=== PATIENT | male | born 1970 | race Caucasian/White ===

== ENCOUNTER 2022-09-07 07:56 | Observation (INO) ==
--- NOTE | 2022-09-07 08:10 | DR.CP ---
HPI Time Seen Time Seen by Provider: 09/07/22 08:09 HPI Comment HPI Comment: PATIENT IS 51YR OLD MALE IN ER WITH LEFT SIDED CHEST PAIN RADIATING TO LEFT ARM SINCE 05:30AM TODAY. PATIENT SAID HE WAS DIAPHORETIC WHEN PAIN STARTED AND HE IS NAUSEATED. VOMITED TIMES 2 AND IS SOB. DENIES FEVER. HAD SIMILAR EPISODE 10/28/2020. Complaint Chief Complaint Doctor Comments: CHEST PAIN LEFT CHEST RADIATING TO LEFT ARM SINCE 05:30 AM TODAY. Reviewed Nurses Notes Review: Yes PMH PMH Past Medical History: Hypertension Past Surgical History: Yes Surgical History: Abdominal Surgery, Appendectomy, Cholecystectomy and Ortho Surgery Family History Family Medical History: Coronary Artery Disease and Hypertension Social History Do you use any recreational Drugs:: No ROS Review of Systems Constitutional: No Symptoms Reported; negative Fever Eyes: No Symptoms Reported ENTM: No Symptoms Reported; negative Nose Discharge or Nose Congestion Respiratoy: Short of Breath; negative Non-Productive Cough, Moist Cough or Wheezing Cardiovascular: Chest Pain; negative Edema or Palpitations Gastrointestinal/Abdominal: Abdominal Pain, Nausea and Vomiting; negative Diarrhea Genitourinary: No Symptoms Reported; negative Dysuria, Frequency or Hematuria Neurological: No Symptoms Reported; negative Headache or Dizziness Musculoskeletal: No Symptoms Reported; negative Muscle Pain Integumentary: No Symptoms Reported; negative Rash or Juandice Hematologic/Lymphatic: No Symptoms Reported; negative Easy Bleeding or Easy Bruising Endocrine: No Symptoms Reported; negative Increased Thirst or Increased Urine Psychiatric: No Symptoms Reported All Other Systems: Reviewed and Negative PE Vitals Vitals: Temperature 97.5 F Pulse Rate [Right] 66 Pulse Rate 60 Respiratory Rate 15 Blood Pressure [Left Arm] 127/67 Blood Pressure 155/92 O2 Sat by Pulse Oximetry 100 General Limitations: No Limitations General Appearance: Alert and In No Apparent Distress Head Head Exam: Normal Inspection Eyes Eye exam: Normal Appearance ENT ENT Exam: Normal Exam, Normal Oropharynx, Normal External Ear Exam and TM's Normal Bilaterally Chest Chest Inspection: Normal Inspection and Symmetric Chest Wall Rise; negative Tenderness Respiratory Respiratory Exam: Normal Lung Sounds Bilat; negative Accessory Muscle Use, Chest Wall Tenderness or Respiratory Distress Respiratory Exam: Bilateral: Clear to Auscultation Cardiovascular Cardiovascular Exam: Regular Rate, Normal Rhythm and Normal Heart Sounds; negative Systolic Murmur or Diastolic Murmur Pulse: Normal Edema: Normal Abdominal Exam Abdominal Exam: Normal Bowel Sounds, Soft and Tenderness (EPIGASTRIC TENDERNESS.) Abdominal Tenderness: RUQ, LUQ and Epigastrium Extremities Extremities Exam: Normal Inspection and Normal Capillary Refill Back Back Exam: Normal Inspection; negative (R) CVA Tenderness or (L) CVA Tenderness Neurologic Neurological Exam: Alert and Oriented X3; negative Motor Sensory Deficit Psychiatric Psychiatric Exam: Normal Affect and Normal Mood Skin Skin Exam: Intact MDM Additional Information Additional Information Obtained From: Old Records Differential Diagnosis Differential Diagnosis: Angina, CHF, Myocardial Infarction, Pericarditis, Pancreatitis, Pneumonia, Pneumothorax and Pulmonary Embolus COURSE Treatment Treatment: SEE ORDERS DONE WHILE PATIENT WAS IN ER. PATIENTS EKG, LABS AND CT REPORT DISCUSSED WITH HIM. MEDICATED FOR PAIN IN ER WITH NAUSEA MED WELL. AMYLASE AND LIPASE ELEVATED. PLACE ON IV FLUIDS AND WILL VITALIY NPO AND ADMIT HIM IN HOSPITAL FOR STOMACK REST AND IV FLUIDS. Consultation Consultation Comments: DISCUSSED PATIENT WITH DR. PARKS. HE WILL ADMIT PATIENT. Education/Counseling Education/Counseling: Patient Educated On: Diagnosis ROR Labs Reviewed Laboratory Results Reviewed?: Yes Result Diagrams: 09/08/22 05:36 09/08/22 05:36 Laboratory: WBC 6.0 X10^3/uL (3.6-10.0) 09/07/22 08:14 RBC 5.63 X10^6/uL (4.7-6.0) 09/07/22 08:14 Hgb 15.8 g/dL (13.5-18.0) 09/07/22 08:14 Hct 45.4 % (42.0-54.0) 09/07/22 08:14 MCV 80.7 fL (80.0-100.0) 09/07/22 08:14 MCH 28.1 pg (27.0-34.0) 09/07/22 08:14 MCHC 34.9 g/dL (33.0-35.0) 09/07/22 08:14 RDW 13.6 % (11.6-16.5) 09/07/22 08:14 Plt Count 164 X10^3/uL (150.0-450.0) 09/07/22 08:14 MPV 8.9 fL (7.4-11.0) 09/07/22 08:14 Neut % (Auto) 53.8 % (42.0-75.0) 09/07/22 08:14 Lymph % (Auto) 36.0 % (21.0-51.0) 09/07/22 08:14 [place] % (Auto) 8.0 % (0.0-13.0) 09/07/22 08:14 Eos % (Auto) 1.2 % (0.9-2.9) 09/07/22 08:14 Baso % (Auto) 1.0 % (0.2-1.0) 09/07/22 08:14 Neut # (Auto) 3.2 x10^3/uL (2.2-4.8) 09/07/22 08:14 Lymph # (Auto) 2.2 X10^3/uL (1.3-2.9) 09/07/22 08:14 [place] # (Auto) 0.5 x10^3/uL (0.3-0.8) 09/07/22 08:14 Eos # (Auto) 0.1 x10^3/uL (0.0-0.2) 09/07/22 08:14 Baso # (Auto) 0.1 X10^3/uL (0.0-0.1) 09/07/22 08:14 Absolute Nucleated RBC 0.1 /100WBC 09/07/22 08:14 D-Dimer 0.28 ug/ml (0.0-0.57) 09/07/22 08:14 Sodium 141 mmol/L (136-145) 09/07/22 08:14 Corrected Sodium TNP 09/07/22 08:14 Potassium 4.0 mmol/L (3.5-5.1) 09/07/22 08:14 Chloride 106 mmol/L (98-107) 09/07/22 08:14 Carbon Dioxide 31.8 mmol/L (21-32) 09/07/22 08:14 BUN 13 mg/dL (7-18) 09/07/22 08:14 Creatinine 0.82 mg/dL (0.70-1.30) 09/07/22 08:14 Est GFR (MDRD) Af Amer > 60 (>60) 09/07/22 08:14 Est GFR (MDRD) Non-Af > 60 (>60) 09/07/22 08:14 Glucose 110 mg/dL (65-99) H 09/07/22 08:14 Calcium 8.3 mg/dL (8.5-10.1) L 09/07/22 08:14 Corrected Calcium TNP 09/07/22 08:14 Total Bilirubin 0.50 mg/dL (0.2-1.0) 09/07/22 08:14 AST 15 Units/L (15-37) 09/07/22 08:14 ALT 24 Units/L (12-78) 09/07/22 08:14 Alkaline Phosphatase 87 Units/L (46-116) 09/07/22 08:14 Creatine Kinase 123 Units/L (39-308) 09/07/22 08:14 Troponin I High Sens 5.0 ng/L (4.0-60.0) 09/07/22 10:28 B-Natriuretic Peptide 15.9 pg/mL (0-79) 09/07/22 08:14 Total Protein 6.8 g/dL (6.4-8.2) 09/07/22 08:14 Albumin 3.7 g/dL (3.4-5.0) 09/07/22 08:14 Globulin 3.1 g/dL (2.5-4.5) 09/07/22 08:14 Albumin/Globulin Ratio 1.2 Ratio (1.1-2.1) 09/07/22 08:14 Amylase 157 Units/L (25-115) H 09/07/22 08:14 Lipase 1550 Units/L (73-393) H 09/07/22 08:14 XRAY XRAY Interpreted by: Radiologist (REPORT NOTED.) and Self EKG Rate: 61 [place]: Normal Rhythm: NSR Block: None Hypertrophy: None ST: Nonsp Opioid Opioid Risk Tool Age (Steven box if 16-45): No History of Preadolescent Sexual Abuse: No Total: 0 Total Score Risk Category: Low Risk Copyright: Sonido MAX predicting aberrant behaviors Discharge Plan Diagnosis Discharge Problem: Chest pain Qualifiers: Chest pain type: precordial pain Qualified Code(s): R07.2 - Precordial pain Acute pancreatitis Qualifiers: Pancreatitis type: unspecified pancreatitis type Acute pancreatitis complication: unspecified Qualified Code(s): K85.90 - Acute pancreatitis without necrosis or infection, unspecified Discharge Plan Patient Disposition: ADMITTED INPATIENT Condition: Stable Orders to Discharge Patient Discharge Orders: Discharge (Routine); Ordered 09/08/22 Ordered By: Umair Parks
[2022-09-07] MEDS ORDERED: ASPIRIN 81 MG CHEWTAB PO ONE (08:13)
[2022-09-07] MEDS ORDERED: PEPCID 20 MG VIAL IVP ONE (08:13)
--- NOTE | 2022-09-07 08:17 | EKG ---
Test Reason : chest pain Blood Pressure : */* mmHG Vent. Rate : 61 BPM Atrial Rate : 61 BPM P-R Int : 160 ms QRS Dur : 96 ms QT Int : 428 ms P-R-T Axes : 30 -18 20 degrees QTc Int : 430 ms Normal sinus rhythm Low voltage QRS Borderline ECG No previous ECGs available Confirmed by Dustin Hoffmann ([id number]) on 09/08/2022 7:43:44 AM Referred By: Confirmed By: Dustin Hoffmann
[2022-09-07] MEDS ORDERED: ASPIRIN 81 MG CHEWTAB ONE (08:18)
[2022-09-07] MEDS ORDERED: PEPCID 20 MG VIAL ONE (08:18)
[2022-09-07 08:25] LABS: BASOPHILS # (AUTO) 0.1 X10^3/uL (0.0-0.1); EOSINOPHILS # (AUTO) 0.1 x10^3/uL (0.0-0.2); EOSINOPHILS % (AUTO) 1.2 % (0.9-2.9); HEMATOCRIT 45.4 % (42.0-54.0); HEMOGLOBIN 15.8 g/dL (13.5-18.0); LYMPHOCYTES # (AUTO) 2.2 X10^3/uL (1.3-2.9); MEAN CORPUSCULAR HEMOGLOBIN 28.1 pg (27.0-34.0); MEAN CORPUSCULAR HGB CONC 34.9 g/dL (33.0-35.0); MEAN CORPUSCULAR VOLUME 80.7 fL (80.0-100.0); MEAN PLATELET VOLUME 8.9 fL (7.4-11.0); MONOCYTES # (AUTO) 0.5 x10^3/uL (0.3-0.8); NEUTROPHILS # (AUTO) 3.2 x10^3/uL (2.2-4.8); NEUTROPHILS % (AUTO) 53.8 % (42.0-75.0); RED BLOOD COUNT 5.63 X10^6/uL (4.7-6.0); RED CELL DISTRIBUTION WIDTH 13.6 % (11.6-16.5)
[2022-09-07] MEDS: NITROSTAT SL PRN ×2 (08:28→08:32)
[2022-09-07] MEDS ORDERED: ZOFRAN INJ 4 MG VIAL IVP ONE (08:38)
[2022-09-07] MEDS ORDERED: MORPHINE SULFATE INJ 4 MG IVP ONE (08:38)
[2022-09-07] MEDS ORDERED: ZOFRAN INJ 4 MG VIAL ONE (08:39)
[2022-09-07] MEDS ORDERED: MORPHINE SULFATE INJ 4 MG ONE (08:39)
[2022-09-07 08:42] LABS: ALANINE AMINOTRANSFERASE 24 Units/L (12-78); ALBUMIN 3.7 g/dL (3.4-5.0); ALKALINE PHOSPHATASE 87 Units/L (46-116); ASPARTATE AMINO TRANSFERASE 15 Units/L (15-37); BLOOD UREA NITROGEN 13 mg/dL (7-18); CALCIUM 8.3 mg/dL (8.5-10.1); CARBON DIOXIDE 31.8 mmol/L (21-32); CHLORIDE 106 mmol/L (98-107); CREATINE KINASE 123 Units/L (39-308); CREATININE 0.82 mg/dL (0.70-1.30); SODIUM 141 mmol/L (136-145); TOTAL PROTEIN 6.8 g/dL (6.4-8.2); eGFR NON BLACK RACES > 60 (>60)
--- NOTE | 2022-09-07 09:44 | EKG ---
Test Reason : Chest pain and PVCs Blood Pressure : */* mmHG Vent. Rate : 63 BPM Atrial Rate : 63 BPM P-R Int : 162 ms QRS Dur : 98 ms QT Int : 420 ms P-R-T Axes : 13 -3 2 degrees QTc Int : 429 ms Sinus rhythm with occasional premature ventricular complexes with ventricular escape complexes Nonspecific T wave abnormality Abnormal ECG When compared with ECG of 07-SEP-2022 08:15, (Unconfirmed) premature ventricular complexes are now present Sinus rhythm is now with ventricular escape complexes Confirmed by Dustin Hoffmann ([id number]) on 09/08/2022 7:43:40 AM Referred By: Confirmed By: Dustin Hoffmann
[2022-09-07 10:21] LABS: AMYLASE 157 Units/L (25-115)
[2022-09-07 10:25] LABS: LIPASE 1550 Units/L (73-393)
--- NOTE | 2022-09-07 12:31 | CT ---
HISTORYAbdominal painSTUDYCT abdomen pelvis without contrastTechnique: Axial noncontrast images with coronal and sagittal reformats. Dose reduction procedures were used with mA/kv adjusted for body size. THIS EXAMINATION IS LIMITED DUE TO THE LACK OF INTRAVENOUS AND ORAL CONTRAST. The examination was performed in this manner at the sole discretion of the ordering caregiver.COMPARISONNoneFINDINGSLung bases are clear. The liver, spleen, adrenal glands, and pancreas are within normal limits but only to the limitations of an unenhanced examination. Patient is status post cholecystectomy. The kidneys are unobstructed and without stones. No ureteral calculi are identified. Abdominal aorta is normal in caliber. No intraperitoneal or retroperitoneal lymphadenopathy of significance is identified. The appendix is not identified. There are no secondary signs of appendicitis present. There are no findings suggestive of enteritis, colitis, or diverticulitis. Examination of the pelvis demonstrated no evidence for pelvic masses, pelvic fluid, or pelvic lymphadenopathy. No bladder abnormality is identified. Small fat containing left inguinal hernia is present. No lytic or blastic skeletal lesions of significance are identified.IMPRESSIONNo acute intra-abdominal or intrapelvic abnormality identified but only to the limitations of an examination performed without intravenous and without oral contrastSmall fat containing left inguinal herniaElectronically signed by: PRATIK JIMENEZ (Sep 07, 2022 12:30:19)
--- NOTE | 2022-09-07 14:16 | RAD ---
HISTORYPatient states he awoke at 0530 with pain to left chest radiating down left arm. Patient states he was nauseated and vomited x 2. Relevant Clinical InformationSTUDYCHEST, 1 VIEWCOMPARISONNone available.FINDINGSThe trachea is midline. The cardiac silhouette is unremarkable.The lungs are clear without focal infiltrate or effusion.The bony thorax is unremarkable.IMPRESSIONNo acute cardiopulmonary findings .Electronically signed by: JULIANNE SCHROEDER III (Sep 07, 2022 14:14:21)
[2022-09-07] MEDS ORDERED: MORPHINE SULFATE INJ 4 MG IVP PRN (14:17)
[2022-09-07] MEDS ORDERED: ZOFRAN INJ 4 MG VIAL IVP PRN (14:17)
[2022-09-07 15:14] VITALS: BMI 19.3
[2022-09-07] MEDS: NS 1,000 ML IV 1,000 ML IV SCH ×2 (17:54→22:54)
--- NOTE | 2022-09-07 22:57 | EKG ---
Test Reason : chest pain Blood Pressure : */* mmHG Vent. Rate : 51 BPM Atrial Rate : 51 BPM P-R Int : 172 ms QRS Dur : 98 ms QT Int : 442 ms P-R-T Axes : 26 -6 11 degrees QTc Int : 407 ms Sinus bradycardia Otherwise normal ECG When compared with ECG of 07-SEP-2022 09:42, (Unconfirmed) premature ventricular complexes are no longer present Sinus rhythm is no longer with ventricular escape complexes Confirmed by Dustin Hoffmann ([id number]) on 09/08/2022 7:41:10 AM Referred By: Confirmed By: Dustin Hoffmann
[2022-09-08 06:04] LABS: BASOPHILS % (AUTO) 0.7 % (0.2-1.0); EOSINOPHILS # (AUTO) 0.1 x10^3/uL (0.0-0.2); EOSINOPHILS % (AUTO) 1.6 % (0.9-2.9); HEMATOCRIT 43.3 % (42.0-54.0); HEMOGLOBIN 14.7 g/dL (13.5-18.0); LYMPHOCYTES # (AUTO) 1.9 X10^3/uL (1.3-2.9); LYMPHOCYTES % (AUTO) 33.7 % (21.0-51.0); MEAN CORPUSCULAR HEMOGLOBIN 27.9 pg (27.0-34.0); MEAN CORPUSCULAR HGB CONC 33.9 g/dL (33.0-35.0); MEAN CORPUSCULAR VOLUME 82.1 fL (80.0-100.0); MONOCYTES # (AUTO) 0.4 x10^3/uL (0.3-0.8); MONOCYTES % (AUTO) 6.9 % (0.0-13.0); NEUTROPHILS # (AUTO) 3.3 x10^3/uL (2.2-4.8); NEUTROPHILS % (AUTO) 57.1 % (42.0-75.0); RED BLOOD COUNT 5.28 X10^6/uL (4.7-6.0); RED CELL DISTRIBUTION WIDTH 13.9 % (11.6-16.5); WHITE BLOOD COUNT 5.8 X10^3/uL (3.6-10.0)
[2022-09-08 06:25] LABS: ALANINE AMINOTRANSFERASE 26 Units/L (12-78); ALBUMIN 3.2 g/dL (3.4-5.0); ALKALINE PHOSPHATASE 80 Units/L (46-116); AMYLASE 69 Units/L (25-115); ASPARTATE AMINO TRANSFERASE 17 Units/L (15-37); BLOOD UREA NITROGEN 13 mg/dL (7-18); CARBON DIOXIDE 31.5 mmol/L (21-32); CHLORIDE 107 mmol/L (98-107); COR CA(FOR HYPOALB) 8.6 mg/dL (8.5-10.1); CREATININE 0.88 mg/dL (0.70-1.30); LIPASE 276 Units/L (73-393); MAGNESIUM 1.9 mg/dL (2.0-2.9); SODIUM 145 mmol/L (136-145); TOTAL PROTEIN 6.2 g/dL (6.4-8.2); eGFR NON BLACK RACES > 60 (>60)
[2022-09-08] MEDS: NS 1,000 ML IV 1,000 ML IV SCH (07:13)
--- NOTE | 2022-09-08 08:46 | EKG ---
Test Reason : chest pain Blood Pressure : */* mmHG Vent. Rate : 57 BPM Atrial Rate : 57 BPM P-R Int : 170 ms QRS Dur : 98 ms QT Int : 432 ms P-R-T Axes : 34 -11 24 degrees QTc Int : 420 ms Sinus bradycardia with premature atrial complexes Otherwise normal ECG When compared with ECG of 07-SEP-2022 22:50, premature atrial complexes are now present Referred By: Confirmed By:
[2022-09-08] MEDS ORDERED: COZAAR PO SCH (09:00)
[2022-09-08 13:04] VITALS: BP 120/72
--- NOTE | 2022-09-09 09:31 | DR.SSS ---
SHORT STAY SUMMARY Admission Date Date of Admission: 09/07/22 Discharge Date Discharge Date: 09/08/22 Admission Diagnoses Admission Diagnoses: Chest pain rule out Acute pancreatitis Discharge Diagnoses Discharge Diagnoses: Chest pain ruled out Acute pancreatitis Chief Complaint Chief Complaint: Chest pain Abdominal pain History of Present Illness History of Present Illness: Pt is a 51 year old male presenting after having acute chest and abdominal pain that started in the morning. He reports feeling a little nauseous. Denies fevers, chills, diarrhea, constipation, drinking alcohol. Past Medical History Past Medical History: Hypertension Past Surgical History Surgical History: Appendectomy and Cholecystectomy Allergies Allergies Allergy/AdvReac Type Severity Reaction Status Date / Time Penicillins Allergy Verified 10/28/20 10:23 Medications Home Medications: Penicillins Allergy (Verified 10/28/20 10:23) Family History Family Medical History: Hypertension Social History Does patient currently use any type of tobacco product: No Have you used tobacco products in the last 12 months: No Type of Tobacco Use: None Does any household member use tobacco: No Alcohol Use: None Drug Use: None Review of Systems Constitutional: No Symptoms Reported Eyes: No Symptoms Reported ENT: No Symptoms Reported Respiratory: No Symptoms Reported Cardiovascular: Chest Pain Gastrointestinal: Nausea and Abdominal Pain Genitourinary: No Symptoms Reported Musculoskeletal: No Symptoms Reported Skin: No Symptoms Reported Neurological: No Symptoms Reported Physical Exam Vital Signs: Last Vital Signs Temp 97.6 F 09/08/22 08:00 Pulse 52 L 09/08/22 08:00 Resp 20 09/08/22 08:00 BP 116/71 09/08/22 08:00 Pulse Ox 98 09/08/22 08:00 O2 Del Method Nasal Cannula 09/08/22 08:00 O2 Flow Rate 2 09/07/22 21:00 FiO2 28 09/07/22 21:00 Oriented: Normal Eyes: Normal Ear: Normal Nose: Normal Respiratory: Clear Throughout Cardiovascular: Normal : Normal Auscultation: Bowel Sounds: Normal Palpation: Normal Tenderness: Normal Skin: Normal Musculoskeletal: Normal Psychiatric: Normal Mood Description: Calm Speech Pattern: Clear Labs Labs: Laboratory Last Values WBC 5.8 X10^3/uL (3.6-10.0) 09/08/22 05:36 RBC 5.28 X10^6/uL (4.7-6.0) 09/08/22 05:36 Hgb 14.7 g/dL (13.5-18.0) 09/08/22 05:36 Hct 43.3 % (42.0-54.0) 09/08/22 05:36 MCV 82.1 fL (80.0-100.0) 09/08/22 05:36 MCH 27.9 pg (27.0-34.0) 09/08/22 05:36 MCHC 33.9 g/dL (33.0-35.0) 09/08/22 05:36 RDW 13.9 % (11.6-16.5) 09/08/22 05:36 Plt Count 156 X10^3/uL (150.0-450.0) 09/08/22 05:36 MPV 9.0 fL (7.4-11.0) 09/08/22 05:36 Neut % (Auto) 57.1 % (42.0-75.0) 09/08/22 05:36 Lymph % (Auto) 33.7 % (21.0-51.0) 09/08/22 05:36 [place] % (Auto) 6.9 % (0.0-13.0) 09/08/22 05:36 Eos % (Auto) 1.6 % (0.9-2.9) 09/08/22 05:36 Baso % (Auto) 0.7 % (0.2-1.0) 09/08/22 05:36 Neut # (Auto) 3.3 x10^3/uL (2.2-4.8) 09/08/22 05:36 Lymph # (Auto) 1.9 X10^3/uL (1.3-2.9) 09/08/22 05:36 [place] # (Auto) 0.4 x10^3/uL (0.3-0.8) 09/08/22 05:36 Eos # (Auto) 0.1 x10^3/uL (0.0-0.2) 09/08/22 05:36 Baso # (Auto) 0.0 X10^3/uL (0.0-0.1) 09/08/22 05:36 Absolute Nucleated RBC 0.1 /100WBC 09/08/22 05:36 D-Dimer 0.28 ug/ml (0.0-0.57) 09/07/22 08:14 Sodium 145 mmol/L (136-145) 09/08/22 05:36 Corrected Sodium TNP 09/08/22 05:36 Potassium 4.1 mmol/L (3.5-5.1) 09/08/22 05:36 Chloride 107 mmol/L (98-107) 09/08/22 05:36 Carbon Dioxide 31.5 mmol/L (21-32) 09/08/22 05:36 BUN 13 mg/dL (7-18) 09/08/22 05:36 Creatinine 0.88 mg/dL (0.70-1.30) 09/08/22 05:36 Est GFR (MDRD) Af Amer > 60 (>60) 09/08/22 05:36 Est GFR (MDRD) Non-Af > 60 (>60) 09/08/22 05:36 Glucose 90 mg/dL (65-99) 09/08/22 05:36 Calcium 8.0 mg/dL (8.5-10.1) L 09/08/22 05:36 Corrected Calcium 8.6 mg/dL (8.5-10.1) 09/08/22 05:36 Magnesium 1.9 mg/dL (2.0-2.9) L 09/08/22 05:36 Total Bilirubin 0.80 mg/dL (0.2-1.0) 09/08/22 05:36 AST 17 Units/L (15-37) 09/08/22 05:36 ALT 26 Units/L (12-78) 09/08/22 05:36 Alkaline Phosphatase 80 Units/L (46-116) 09/08/22 05:36 Creatine Kinase 123 Units/L (39-308) 09/07/22 08:14 Troponin I High Sens 6.1 ng/L (4.0-60.0) 09/07/22 23:10 B-Natriuretic Peptide 15.9 pg/mL (0-79) 09/07/22 08:14 Total Protein 6.2 g/dL (6.4-8.2) L 09/08/22 05:36 Albumin 3.2 g/dL (3.4-5.0) L 09/08/22 05:36 Globulin 3.0 g/dL (2.5-4.5) 09/08/22 05:36 Albumin/Globulin Ratio 1.1 Ratio (1.1-2.1) 09/08/22 05:36 Amylase 69 Units/L (25-115) 09/08/22 05:36 Lipase 276 Units/L (73-393) 09/08/22 05:36 Assessment/Plan (1) Acute pancreatitis: (2) Chest pain, rule out acute myocardial infarction: Hospital Course Hospital Course: Labs/imaging: Wbc 5.8, Hgb 14.7, Plt 156, Na 145, K 4.1, Creatinine 0.88, Glucose 90, Troponin negative x 2, Lipase 1550>276, CT abdomen and pelvis was obtained that revealed: No acute intra-abdominal or intrapelvic abnormality identified. Small fat containing left inguinal hernia. Chest XR no acute cardiopulmomary findings. Pt monitored overnight for acute pancreatitis and chest pain rule out, started on IVF, and kept NPO to allow bowel rest. Anti-emet ics prn. Cardiac enzymes negative. Symptoms significantly improved and lipase trended down. Pt diet advanced and pt discharged in stable condition. Instructed to follow up with pcp in 1 week. Discharge Medications Discharge Medications: Prescriptions: Discharge Disposition Discharge Disposition: Home Discharge Plan Discharge Plan Patient Disposition: 01 HOME, SELF-CARE Condition: Stable Health Concerns: Post Hospitalization: new medications and changes needed to prevent readmission or further decline. Pt educated and given instructions on all concerns. Care Plan Goals: Problem: Chest Pain Goals: Chest pain improving/resolved Instructions: Contact your physician or report to the closest Emergency Department if your chest pain returns or worsens. Take medications as prescribed. Follow up with your primary doctor as instructed. Plan of Treatment: Continue with present treatment and follow up plan. Pt is to keep follow up appointment as instructed and take medications as ordered. Assessment: No acute distress noted at time of discharge. Prescriptions: Continued losartan 50 mg Tablet 50 mg PO DAILY Orders to Discharge Patient Discharge Orders: Discharge (Routine); Ordered 09/08/22 Ordered By: Umair Gregory Follow ups/Referrals Follow ups/Referrals: Narcisa [facility] [REFERRING] - 09/21/22 1:00 pm Instructions Instructions: Acute Pancreatitis, [id number], Nonspecific Chest Pain, Adult, [id number], Centre Diet Stand Alone Forms: Excuse From Work or School
== END 2022-09-08 14:20 | disposition home or self-care (01) ==
LOC: ER 07:56 → MED/SURG 07:56
PROVIDERS: ADMIT Family Medicine; ATTEND Family Medicine
DX: R79.89 Other specified abnormal findings of blood chemistry; K85.80 Other acute pancreatitis without necrosis or infection; R07.89 Other chest pain; R11.2 Nausea with vomiting, unspecified; R06.02 Shortness of breath; K40.90 Unilateral inguinal hernia, without obstruction or gangrene, not specified as recurrent